=== PATIENT | female | born 1995 | race Hispanic/Latino ===

== ENCOUNTER 2021-02-13 16:09 | Emergency (ER) | payer SELFPAY ==
[~2021-02-13] VITALS: Ht 157.5 cm; Wt 50.8 kg
[2021-02-13] MEDS ORDERED: DOXYCYCLINE HY100 MG PO (16:26)
== END 2021-02-13 16:37 | disposition home or self-care (01) ==
LOC: ER 16:23
DX: S81.812A Laceration without foreign body, left lower leg, initial encounter (principal); W55.03XA Scratched by cat, initial encounter
CPT/HCPCS: 99282